=== PATIENT | male | born 1960 | race Caucasian/White ===

== ENCOUNTER 2022-07-14 09:44 | Outpatient (CLI) | payer BC, SELFPAY | END 2022-07-14 09:45 | disposition home or self-care (01) | LOC: AMB 07-15 09:32 | PROVIDERS: PCP Family Medicine; Visit Provider Family Medicine | DX: R06.09 Other forms of dyspnea (principal) | CPT/HCPCS: A0425; A0427 ==

== ENCOUNTER 2022-07-14 10:11 | Emergency (ER) | payer BC, SELFPAY ==
[2022-07-14] VITALS (31 sets, daily range): BP systolic 85–133; BP diastolic 49–73; PULSE 77–95; RESP 24; TEMP 37; O2SAT 90–99; BMI 27.8
--- NOTE | 2022-07-14 10:38 | CRLHL7_ITS ---
For Patients: As a result of the Cures Act, medical imaging exams and procedure reports are released immediately into your electronic medical record. You may view this report before your referring provider. If you have questions, please contact your health care provider. Indication: Shortness of breath Technique: Portable chest Comparison: No comparison Findings: Mildly enlarged cardiac silhouette. Low lung volumes. Diffuse interstitial opacities with more dense airspace consolidation in the right lower lobe. There is no effusion or pneumothorax. Findings could be related to pulmonary edema with possible right lower lobe pneumonia. This could be related to atypical infectious inflammatory etiologies. Dictated by Lela Johnson MD @ 07/14/2022 11:39:52 AM (Electronically Signed)
[2022-07-14 11:02] LABS: ABG PCO2 37 mmHG (35-45); Base Excess ABG 7.3 mmol/L (-3.0-3.0); Carboxyhemoglobin* 1.5 % (0.0-5.0); HCO3 ABG 30 mmol/L (21-28); Oxygen Saturation ABG 93 % (92-100); PO2 ABG 63.8 mmHG (80-105); TCO2 ABG 27 mmol/l (21-30); pH ABG 7.52 (7.35-7.45)
[2022-07-14 11:05] LABS: Lactate* 2.4 mmol/L (0.5-1.9)
[2022-07-14 11:15] LABS: Chloride* 84 mmol/L (96-114)
[2022-07-14 11:17] LABS: Creatinine* 1.1 mg/dL (0.5-1.5); Est. Creatinine Clearance* 67.84; Estimated Glomerular Filt Rate 75 ml/min; INR 1.11 (0.91-1.10)
[2022-07-14 11:18] LABS: Blood Urea Nitrogen* 45 mg/dL (7-30); Carbon Dioxide* 31 mmol/L (20-32); Partial Thromboplastin Time* 29 Seconds (23-33)
[2022-07-14 11:19] LABS: Glucose* 241 mg/dL (60-115)
[2022-07-14 11:20] LABS: D Dimer Quantitative* 3.33 ug/ml (0.00-0.50)
[2022-07-14 11:27] LABS: Basophils Percent Auto 0.1 % (0.0-3.0); Eosinophils Percent Auto 0.1 % (0.0-7.0); Hematocrit 36.3 % (37.0-53.0); Hemoglobin* 13.1 gm/dL (13.5-17.5); Immature Granulocytes Pct Auto 0.9 %; Lymphocytes Percent Auto 1.4 % (20-44); Mean Corpuscular HGB Conc 36 gm/dL (32-36); Mean Corpuscular Hemoglobin 33 pg (26-34); Mean Corpuscular Volume 93 fL (80-100); Monocytes Percent Auto 1.6 % (0.0-11.0); Neutrophils Percent Auto 95.9 % (42.0-72.0); Platelet Count* 302 K/uL (140-440); RDW Coefficient of Variation % 13.1 % (11.5-15.5); Red Blood Count 3.92 m/uL (4.30-5.90); White Blood Count* 18.54 K/uL (4.50-11.00)
[2022-07-14 11:31] LABS: NT Pro B Type NatriureticPept* 814 pg/mL; Potassium* 2.6 mmol/L (3.6-5.1); Sodium* 124 mmol/L (135-149)
[2022-07-14 11:32] LABS: Slide Review Reflex No
[2022-07-14 11:40] LABS: PCR FLU A Negative PCR FLU A (Negative); PCR FLU B Negative PCR FLU B (Negative); PCR RSV Negative PCR RSV (Negative); SARS PCR* Negative SARS-CoV-2 (Negative)
--- NOTE | 2022-07-14 11:44 | CRLHL7_ITS ---
For Patients: As a result of the Cures Act, medical imaging exams and procedure reports are released immediately into your electronic medical record. You may view this report before your referring provider. If you have questions, please contact your health care provider. Indication: Hypoxia shortness breath Technique: Contrast-enhanced CT PE Comparison: No comparison Findings: Normal caliber thoracic aorta. No pulmonary emboli. Prominent mediastinal and hilar lymph may be reactive there also. The heart is enlarged. There is no pericardial effusion. There is diffuse bilateral predominantly lower lobe ground-glass opacities bilaterally with minimal peripheral ground-glass opacities upper lobes. Findings may represent infectious or inflammatory process to atypical infections. This does not have a typical appearance for pneumonia. No effusion is seen. Granulomas within the spleen. Small hiatal hernia. No suspicious bony lesions are seen. Impression: 1. No pulmonary emboli. 2. Bilateral ground-glass opacities predominantly in the lower lobes. Minimal peripheral ground-glass opacities in the upper lobes. No effusion. Findings may represent an infectious or inflammatory process to include atypical infections. Please note that all CT scans at this facility use dose modulation, iterative reconstruction, and/or weight-based dosing when appropriate to reduce radiation dose to as low as reasonably achievable. Dictated by Lela Johnson MD @ 07/14/2022 1:54:29 PM (Electronically Signed)
[2022-07-14] MEDS: PIPERACILLIN/TAZOBACTAM 3.375 GM in 0.9 % SODIUM CHLORIDE Mini-bag 100 ML IVPB (11:48)
[2022-07-14] MEDS: 0.9 % SODIUM CHLORIDE 1000 ml 1,000 ML 150 ML IV (12:05)
[2022-07-14] MEDS: 0.9 % SODIUM CHLORIDE 500 ML 500 ML IV (12:05)
[2022-07-14] MEDS: POTASSIUM CHLORIDE 10 MEQ/100 ML PIGGYBACK 100 MEQ IVPB ×3 (12:05→14:53)
[2022-07-14 12:06] LABS: C Reactive Protein* 32.2 mg/dL (0.5-1.0)
[2022-07-14] MEDS: AZITHROMYCIN 500 MG in 0.9 % SODIUM CHLORIDE 250 ml 250 ML 255 MG IVPB (12:57)
[2022-07-14] MEDS: ONDANSETRON 2 MG/ML inj 4 MG IVP (13:05)
--- NOTE | 2022-07-14 13:21 | ED_ITS ---
HPI - SOB/Dyspnea General Date Seen: 07/14/22 Chief Complaint: Shortness of Breath/Dyspnea Stated Complaint: Low O2 Time Seen by Provider: 07/14/22 10:38 Source: patient, family and EMS Mode of arrival: EMS Limitations: no limitations History of Present Illness HPI Narrative: Patient is a 62-year-old gentleman who presents here by EMS after initially being at the [facility], sent over here by his primary care doctor after he found to be profoundly hypoxic at 82%. He is on a 10 L rebreathe when I see him here, history is that he has been sick for approximately 11 days after coming back from [place] and the [facility]. He has been progressively weak, short of breath, and dizzy. Denies any chest pain, leg swelling, he has no personal history of coronary artery disease, PEs, DVTs. He does have a history of chronic atrial fibrillation, and is not anticoagulated as his Harpreet score was too low according to Cardiology. Denies fevers chills or sweats, he has had some nausea but no vomiting, no diarrhea, no rashes, his was with him and I healthcare provider here at our institution says she is not sick at all. Full immunizations history for COVID is noted. MD elicited complaint: shortness of breath and cough Pertinent past history: diabetes (Diet controlled) Onset (ago): week(s) Timing: constant Severity: severe Exacerbating factors: lying flat and exertion Relieving factors: oxygen Associated symptoms: denies other symptoms Treatment prior to arrival: oxygen Related Data Home oxygen amount: none Home Medications Medication Instructions Recorded Confirmed chlorthalidone 25 mg tablet 25 mg PO DAILY 07/14/22 07/14/22 diltiazem HCl 240 mg 240 mg PO DAILY 07/14/22 07/14/22 capsule,extended release 24 hr loratadine 10 mg tablet 10 mg PO DAILY 07/14/22 07/14/22 losartan 25 mg tablet 25 mg PO DAILY 07/14/22 07/14/22 Allergies Allergy/AdvReac Type Severity Reaction Status Date / Time No Known Drug Allergies Allergy Verified 07/14/22 10:34 Review of Systems Status of ROS: Reports: 10 or more systems reviewed and unremarkable except as noted in History and below Exam Narrative: Exam Narrative: Patient is seen and stabilization room 2, he is initially on a 15 L rebreathe, saturating 89%, switched over to high-flow oxygen by my respiratory therapist, 100% at 30 L and now saturating 92%. Pupils are equal round reactive to light, TMs are normal oropharynx is normal his JVP is elevated approximately 3-4 cm, neck is supple, carotid upstrokes are equal, and there is no meningismus. He is speaking to me normally in full sentences but appears to be slightly short of breath, although when I ask him this he says not really. Chest has bilateral crackles in the bases bilaterally, to approximately mid scapula. No wheezing is noted, respiratory rate is elevated but no signs of respiratory distress, there is no dullness to percussion. Heart sounds are regular, S1-S2 is normal there is no S3-S4 clicks murmurs or gallops his abdomen is soft, and obese there is no guarding no organomegaly, no tenderness to palpation, easily reducible umbilical hernia is noted, male genitalia is noted to be normal bilaterally there is no swelling of his legs, no edema, no tenderness, he moves in through full range of motion. Skin reveals no petechiae or rashes, neurologically intact in his upper lower extremities moving them well, no tremors, proximal and distal muscle strength is normal. Point of care ultrasound is done, his cardiac issues, no pericardial infusion is heart is overall dilated with decreased contractile function, right ventricle is also slightly dilated, but there is no paradoxical motion, IVC also is fully contracted during sniffing test, he does not seem to be fluid overloaded. Const: Vital Signs, click to edit/add: Vital Signs - 24 hr 07/14/22 10:21 07/14/22 10:38 07/14/22 10:40 Temperature 98.6 F Pulse Rate [Right Pulse Oximeter] 95 Respiratory Rate 24 Blood Pressure [Ri ght Upper Arm] 133/73 Pulse Oximetry 90 93 93 Oxygen Delivery Me thod Non Rebreather Mas k Non Rebreather Mas k Non Rebreather Mas k Oxygen Flow Rate 15 15 15 Documenting provider has reviewed patient's vital signs: yes Course Course Hospital Course: I discussed with the patient and the , that we will start antibiotics after blood cultures, this seems like a primary respiratory issue as opposed to cardiac, although there was an elevation of his troponin of 0.1, I did not see evidence of strain on his EKG suggestive of a cardiac cause, he seemed to be just in controlled atrial fibrillation, chest x-ray looked like go bilateral infiltrates in the lower lobes, right greater than left, I spoke to Radiology about this, D-dimer came back elevated at 3.3, CT was ordered, we did also give some fluid boluses, with the thought that his sodium and potassium were low, in the setting of normal renal function, his oxygen did somewhat stabilized, on the current dosage as evidence by his saturations maintaining at 95%, but given his overall picture he was too sick for our institution requires ICU services. I spoke to Dr. Leonel Lang from the ICU at [facility] he accepted him in transport, he thought that the differential was likely Legionella given what he has seen, but cannot rule out obvious coccygeal plasma [place] or just severe community-acquired pneumonia. Vital Signs Vital signs: Initial Vital Signs Temperature 98.6 F 07/14/22 10:21 Temperature Source Temporal Artery Scan 07/14/22 10:21 Pulse Rate 95 07/14/22 10:21 Pulse Rhythm Regular 07/14/22 10:21 Pulse Strength 0+ Absent 07/14/22 10:21 Respiratory Rate 24 07/14/22 10:21 Blood Pressure 133/73 07/14/22 10:21 Blood Pressure Mean 93 07/14/22 10:21 Pulse Oximetry 90 07/14/22 10:21 Oxygen Delivery Method Non Rebreather Mask 07/14/22 10:21 Oxygen Flow Rate 15 07/14/22 10:21 Vital Signs Temperature 98.6 F 07/14/22 10:21 Pulse Rate 95 07/14/22 10:21 Respiratory Rate 24 07/14/22 10:21 Blood Pressure 133/73 07/14/22 10:21 Pulse Oximetry 90 07/14/22 10:21 Oxygen Delivery Method Non Rebreather Mask 07/14/22 10:21 Oxygen Flow Rate 15 07/14/22 10:21 Temperature 98.6 F 07/14/22 10:21 Pulse Rate 95 07/14/22 10:21 Respiratory Rate 24 07/14/22 10:21 Blood Pressure 133/73 07/14/22 10:21 Pulse Oximetry 93 07/14/22 10:40 Oxygen Delivery Method Non Rebreather Mask 07/14/22 10:40 Oxygen Flow Rate 15 03/28/23 10:40 MDM - SOB/Dyspnea MDM Narrative Medical decision making narrative: Life-threatening differential diagnosis includes occluded COPD exacerbation, pulmonary edema, acute coronary syndromes, pulmonary embolism, pneumonia, and pneumothorax. Other differential diagnosis considerations include asthma, bronchitis as well as other etiologies Medical Records Attestation: I reviewed the patient's medical records. Medical records narrative: Atrial fibrillation, hypertension, diet-controlled diabetes, Lab Data Attestation: I reviewed the patient's lab results. Labs: Lab Results 07/14/22 07/14/22 Range/Units 10:43 10:45 WBC 18.54 H (4.50-11.00) K/uL RBC 3.92 L (4.30-5.90) m/uL Hgb 13.1 L (13.5-17.5) gm/dL Hct 36.3 L (37.0-53.0) % MCV 93 (80-100) fL MCH 33 (26-34) pg MCHC 36 (32-36) gm/dL RDW Coeff of Lars 13.1 (11.5-15.5) % Plt Count 302 (140-440) K/uL Neut % (Auto) 95.9 H (42.0-72.0) % Lymph % (Auto) 1.4 L (20-44) % Gregory % (Auto) 1.6 (0.0-11.0) % Eos % (Auto) 0.1 (0.0-7.0) % Baso % (Auto) 0.1 (0.0-3.0) % Neut # (Auto) 17.80 H (1.7-7.0) K/uL Lymph # (Auto) 0.30 L (0.90-2.90) K/uL Gregory # (Auto) 0.30 (0.00-0.90) K/UL Eos # (Auto) 0.00 (0.00-0.50) K/uL Baso # (Auto) 0.00 (0.00-0.30) K/uL INR 1.11 H (0.91-1.10) APTT 29 (23-33) Seconds D-Dimer Quant (PE/DVT) 3.33 H (0.00-0.50) ug/ml ABG pH 7.52 H (7.35-7.45) ABG pCO2 37 (35-45) mmHG ABG pO2 63.8 L (80-105) mmHG ABG HCO3 30 H (21-28) mmol/L ABG Total CO2 27 (21-30) mmol/l ABG O2 Saturation 93 (92-100) % ABG Base Excess 7.3 H (-3.0-3.0) mmol/L Carboxyhemoglobin 1.5 (0.0-5.0) % Sodium 124 L* (135-149) mmol/L Potassium 2.6 L* (3.6-5.1) mmol/L Chloride 84 L (96-114) mmol/L Carbon Dioxide 31 (20-32) mmol/L BUN 45 H (7-30) mg/dL Creatinine 1.1 (0.5-1.5) mg/dL Estimated Creat Clear 67.84 Estimated GFR 75 ml/min Glucose 241 H (60-115) mg/dL Lactate 2.4 H (0.5-1.9) mmol/L Calcium 8.0 L (8.4-10.6) mg/dL C-Reactive Protein 32.2 H (0.5-1.0) mg/dL NT-Pro-B Natriuret Pep 814 pg/mL SARS-CoV-2 (PCR) Negative SARS-CoV-2 (Negative) Influenza Type A (PCR) Negative PCR FLU A (Negative) Influenza Type B (PCR) Negative PCR FLU B (Negative) RSV (PCR) Negative PCR RSV (Negative) POC Troponin I 0.10 H (0.01-0.04) ng/ml ABG Data ABG results: ABG results show hypoxia, with elevated metabolic alkalosis, Imaging Data Chest x-ray: Radiologist's impression: Patient: KIKI HIGH Facility:?[facility] Patient ID:?[id number] Site Patient ID:?[id number]. Site :?[id number] Study:?XRay Chest 1 VIEW PORTABLE-07/14/2022 10:58:49 AM Ordering Physician:Mague Anderson Final Report: Indication: Shortness of breath Technique: Portable chest Comparison: No comparison Findings: Mildly enlarged cardiac silhouette. Low lung volumes. Diffuse interstitial opacities with more dense airspace consolidation in the right lower lobe. There is no effusion or pneumothorax. Findings could be related to pulmonary edema with possible right lower lobe pneumonia. This could be related to atypical infectious inflammatory etiologies. Dictated by Lela Johnson MD @ 07/14/2022 11:39:52 AM (Electronic Signature) ECG Data Attestation: I personally reviewed and interpreted this ECG as follows: Interpretation: EKG shows atrial fibrillation controlled rate, no specific ST wave changes. Critical Care Time Critical Care Time Critical Care Time: Yes Attestation: The patient required my highest level preparedness to intervene emergently and I personally spent this critical care time directly and personally managing the patient. This critical care time included: Obtaining a history; Examining the patient; Pulse oximetry; Ordering and reviewing of studies; Arranging urgent treatment with development of a management plan; Evaluation of patients response to treatment; Frequent reassessment discussions with other providers. This critical care time was performed to assess and manage the high probability of imminent life-threatening deterioration that could result in multiorgan failure. It was exclusive of separate billable procedures and treating other patients and teaching time. Total Critical Care Time in Minutes: 60 Discharge Plan Discharge Clinical Impression: Elevated troponin, Hypoxia, Acute respiratory distress, Acute hyponatremia, Acute hypokalemia Patient Disposition: [facility] Condition: Critical Prescriptions: No Action chlorthalidone 25 mg tablet 25 mg PO DAILY diltiazem HCl 240 mg capsule,extended release 24hr 240 mg PO DAILY loratadine 10 mg tablet 10 mg PO DAILY losartan 25 mg tablet 25 mg PO DAILY Follow Up/Referrals: Joseluis Torres MD [Primary Care Provider] - Stand Alone Forms: Flowbox Info Instructions
[2022-07-14 15:02] LABS: Troponin, Point-of-Care* 0.02 ng/ml (0.01-0.04)
[2022-07-14] MEDS: 0.9 % SODIUM CHLORIDE 1000 ml 1,000 ML IV (15:05)
--- NOTE | 2022-07-14 15:34 | RESP.RT ---
Pt hypoxic this AM upon admission, PT. required placement on HFNC at 100% and a flow of 30L/min. PT tolerated well. BBS very diminished in bases. RR 28 SPO2 came up to 90%, and after a few hours up to 97%. Kept on 100% for transfer. ABG was done right before HFNC placement, on Partial rebreather at 15L via EMS. PT turned over to EMS who placed him on their HFNC units.
== END 2022-07-14 15:38 | disposition short-term general hospital (02) ==
PROVIDERS: Emergency Provider Family Medicine; PCP Family Medicine
DX: R06.03 Acute respiratory distress (principal); E87.1 Hypo-osmolality and hyponatremia; E87.6 Hypokalemia
CPT/HCPCS: 36415; 36600; 71045; 71260; 80048; 82803; 83605; 83880; 84484; 85025; 85379; 85610; 85730; 86140; 87040; 87502; 87634; 87635; 93005; 93308; 96365; 96366; 96375; 99285; 99291; J0456; J2405; J2543; J3480; J7030; J7050; J7120; Q9967

== ENCOUNTER 2022-07-14 14:54 | Outpatient (CLI) | payer BC, SELFPAY | END 2022-07-14 14:55 | disposition home or self-care (01) | LOC: AMB 07-15 11:18 | PROVIDERS: PCP Family Medicine; Visit Provider Family Medicine | DX: R06.09 Other forms of dyspnea (principal) | CPT/HCPCS: A0425; A0434 ==

== ENCOUNTER 2024-08-01 09:30 | Outpatient (RCR) | payer MEDICARE, BC, SELFPAY ==
--- NOTE | 2024-07-11 09:37 | PT.OPEX ---
PT [place] Outpatient Eval PT [facility] Outpatient Eval Start: 07/11/24 08:27 Freq: Status: Active Protocol: Document 07/11/24 08:27 [facility] (Rec: 07/11/24 09:33 [facility] [id number]) E-signed By Javier Baumann, PT Physical Therapy Outpatient Evaluation Insurance Information Recert Due Date 10/03/24 Insurance Name Medicare B Medical Diagnosis Iliotibial band syndrome, left leg M76.32 Muscle weakness (generalized) M62.81 Treating Diagnosis left knee pain M25.562 muscle weakness M62.81 Unsteadiness on feet R26.81 Imaging Report Information x-ray left knee: per pt, no concerns about integrity of knee replacement Referring MD Dr. Alberto Talamantes Subjective Preferred Name Lee Subjective Lee shares history of L TKA ~3 years ago that went well, but ever since then he has always been nervous going up & down stairs, especially if he is carrying something. He kept expecting his knee to get stronger, but it hasn't. He did have PT after the TKA. His left knee has given out on him a few times when carrying heavy items. He also has experienced falls (ie. going down stairs). Pain is generally low, but it will get up to 5/10 when he is more active. Lee does take a 2-3 mile walk most evenings, however, he does not have any formal strengthening routine PMH: left TKA ~3 yrs ago, heart condition, arthritis Pain Comments 5/10 at the worst, left knee Date of Last Physician Visit 05/31/24 Current Work Status Retired Occupation former maintenance team leader Precautions Treatment Precautions/Contraindications none Therapy Limitations/Systems Review Not Limited Objective Other/Pertinent Objective Left knee ROM: 3-0-123 deg R knee: WNL L LE strength: grossly 5/5 per MMT, mild left knee discomfort and feeling of instability Palpation: No pain with palpation/mobilization of left patella or ITB today Functional Test Performed & Score SLS: R: 8 sec L: 6 sec * 8: impaired control on ascend /descend, Left, pain free DL squat: to ~100 deg, pain free left knee Ambulates w/ mild antalgic gait left, tends to keep left knee semi rigid during stance phase Assessment Assessment/Impression 63 year old male ~3 years s/p left TKA from which he never achieved full confidence, strength or motor control. He continues to feel that his left knee lacks strength and stability and has experienced his left knee giving out several times and a couple falls as well. Lee does demonstrate functional weakness of his left quads/ glutes and impaired balance & motor control. His left thigh fatigues fairly easily with motor control challenges. I recommend continued skilled PT to progress in a HEP to facilitate LE functional strength, balance & motor control. Primary Functional Limitations ascend/descend stairs, balance , carrying heavy items, stand w/ rotational movements, stepping over high objects Plan of Care Rehabilitation Potential Excellent Rehabilitation Potential Comments Pt already demonstrated intersession improvements with balance Physical Therapy Goals In 6-8 weeks, patient will: 1) Report at least 50% improved confidence in his left knee with daily activities 2) Carry 30# object up/down stairs reciprocally w/o railing, pain free left knee 3) Be able to step over 18 object confidently, both sides 4) Be I with HEP to continue strengthening and motor control practice to prevent knee giving out or LOB in dynamic situations Coordination/Communication With Referral Source Treatment Plan/Direct Interventions Manual Therapy,Neuromuscular Re-ed,Self-Care/Home Management,Therapeutic Activities,Therapeutic Exercises Direct Interventions Clarification progressive HEP for left LE Comments Frequency/Duration 1x/week for 6-8 weeks Patient Will Be Discharged From Therapy Independent w/HEP, Independently Progressing Evaluation Billing Untimed Code Treatment Minutes 25 Complexity Low Certification Information Initial Certification Date 07/11/24 Ending Certification Date 10/03/24 Provider Signature Required Yes Provider Signature Shows Agreement With POC & Medical Necessity Physician NPI Number Write NPI# Here Physician Comment/Change : Physician Signature & Date Requested Please Sign/Date Here
== END 2024-11-29 23:59 | disposition home or self-care (01) ==
PROVIDERS: PCP Family Medicine; Visit Provider Orthopaedic Surgery
DX: M76.32 Iliotibial band syndrome, left leg (principal); M62.81 Muscle weakness (generalized); M25.562 Pain in left knee; R26.81 Unsteadiness on feet; Z51.89 Encounter for other specified aftercare
CPT/HCPCS: 97110; 97112; 97161